=== PATIENT | female | born 1980 | race Two or more races ===

== ENCOUNTER 2021-07-29 21:02 | Emergency (ER) | payer OTHER ==
[~2021-07-29] VITALS: Ht 167.6 cm; Wt 65.8 kg
[2021-07-30] MEDS ORDERED: PERCOCET 5-3251 EACH PO (00:26)
[2021-07-30] MEDS ORDERED: MEDROLPACK PO (00:26)
== END 2021-07-30 00:48 | disposition home or self-care (01) ==
LOC: ER 21:02
DX: M54.59 Other low back pain (principal)

== ENCOUNTER 2021-07-31 12:46 | Outpatient (CLI) | payer OTHER ==
[~2021-07-31 12:46] MED LIST: MEDROLPACK PO; PERCOCET 5-3251 EACH PO
== END 2021-07-31 14:43 | disposition home or self-care (01) ==
LOC: MRI 12:46
DX: M54.42 Lumbago with sciatica, left side (principal); M54.41 Lumbago with sciatica, right side
CPT/HCPCS: 72148